=== PATIENT | female | born 1985 | race Caucasian/White ===

== ENCOUNTER 2020-05-11 18:59 | Emergency (ER) | payer BC ==
[2020-05-11 19:17] VITALS: TEMP 99
[2020-05-11] MEDS ORDERED: ONDANSETRON 4 MG/2 ML VIAL IVP STA (19:26)
[2020-05-11] MEDS ORDERED: SODIUM CHLORIDE 0.9% 2,000 ML IV STA (19:26)
[2020-05-11] MEDS ORDERED: FAMOTIDINE 20 MG/2 ML VIAL IV STA (19:26)
--- NOTE | 2020-05-11 19:28 | ED ---
General Adult HPI - General Chief complaint: Nausea/Vomiting/Diarrhea Stated complaint: Nausea/vomitting Time Seen by Provider: 05/11/20 19:18 Source: patient, RN notes reviewed Mode of arrival: ambulatory Limitations: no limitations - History of Present Illness Initial comments: Patient is a pleasant 35-year-old female presenting to the emergency Department with complaints of nausea vomiting. Onset of symptoms was around 40 hours ago. Patient has had very limited oral intake since that time. Patient has vomited intermittently several times. He should and still feels nauseated. No abdominal pain. Patient does have headache. Headache is similar to previous migraines. Gradual onset. No weakness or confusion. Patient denies any possible - Related Data Home Medications Medication Instructions Recorded Confirmed Aspirin/Acetaminophen/Caffeine 1 tab PO DAILY PRN 05/11/20 05/11/20 [Excedrin Migraine Caplet] Allergies Allergy/AdvReac Type Severity Reaction Status Date / Time Cephalosporins Allergy Unknown Verified 05/11/20 19:17 Childhood Review of Systems ROS Statement: Those systems with pertinent positive or pertinent negative responses have been documented in the HPI. ROS Other: All systems not noted in ROS Statement are negative. Constitutional: Denies: fever, chills Eyes: Denies: eye pain ENT: Denies: ear pain Respiratory: Denies: cough, dyspnea Cardiovascular: Denies: chest pain Endocrine: Denies: fatigue Gastrointestinal: Reports: nausea, vomiting. Denies: abdominal pain, diarrhea, constipation Genitourinary: Denies: dysuria Musculoskeletal: Denies: back pain Skin: Denies: rash, lesions Neurological: Reports: as per HPI, headache. Denies: weakness Past Medical History Additional Past Medical History / Comment(s): migraines History of Any Multi-Drug Resistant Organisms: None Reported Past Surgical History: No Surgical Hx Reported Past Psychological History: Anxiety Smoking Status: Never smoker Past Alcohol Use History: Occasional Past Drug Use History: Marijuana General Exam Limitations: no limitations General appearance: alert Head exam: Present: atraumatic, normocephalic Eye exam: Present: normal appearance, PERRL, EOMI ENT exam: Present: normal oropharynx Neck exam: Present: normal inspection. Absent: tenderness, meningismus Respiratory exam: Present: normal lung sounds bilaterally Cardiovascular Exam: Present: regular rate, normal rhythm GI/Abdominal exam: Present: soft, normal bowel sounds. Absent: distended, tenderness, guarding, rebound, rigid, pulsatile mass Extremities exam: Present: normal inspection Neurological exam: Present: alert, oriented X3, CN II-XII intact. Absent: motor sensory deficit Psychiatric exam: Present: normal affect, normal mood Skin exam: Present: normal color Course Vital Signs 05/11/20 19:14 Temperature 99.0 F Pulse Rate 90 Respiratory 20 Rate Blood Pressure 139/80 O2 Sat by Pulse 98 Oximetry Medical Decision Making - Medical Decision Making Patient reevaluated and resting comfortably in bed. Patient states she is feeling somewhat better however still has headache. Patient states her headache is similar to her recurrent headaches. Patient states she is having these approximately 4 or so times a year over the past 4 years. Patient states she also had them frequently in her 20s. Headache is similar to that. Patient believes headaches are related to stress. Patient states she has headache in her bilateral frontal/temporal region. Patient again states headache was not sudden and does not differ from her normal headaches. Patient is receptive to receiving a dose of morphine prior to discharge. Patient is agreeable not to drive and will have a friend pick her up. Patient does request discharge other than that. Patient is also receptive to taking a dose of Zofran home with her if needed for nausea later. Patient was offered computed tomography scan of her brain however refuses this. Patient was made aware that she is thought to have low suspicion for any acute abnormality. Patient is advised to have close follow-up primary care physician and is also receptive to this. - Lab Data Result diagrams: 05/11/20 19:31 05/11/20 19:31 Lab Results 05/11/20 05/11/20 05/11/20 Range/Units 19:31 19:31 19:49 WBC 12.3 H (3.8-10.6) k/uL RBC 4.82 (3.80-5.40) m/uL Hgb 14.1 (11.4-16.0) gm/dL Hct 42.4 (34.0-46.0) % MCV 88.0 (80.0-100.0) fL MCH 29.3 (25.0-35.0) pg MCHC 33.3 (31.0-37.0) g/dL RDW 13.2 (11.5-15.5) % Plt Count 352 (150-450) k/uL Neutrophils % 79 % Lymphocytes % 14 % Monocytes % 5 % Eosinophils % 1 % Basophils % 1 % Neutrophils # 9.7 H (1.3-7.7) k/uL Lymphocytes # 1.8 (1.0-4.8) k/uL Monocytes # 0.6 (0-1.0) k/uL Eosinophils # 0.1 (0-0.7) k/uL Basophils # 0.1 (0-0.2) k/uL Sodium 137 (137-145) mmol/L Potassium 4.1 (3.5-5.1) mmol/L Chloride 105 (98-107) mmol/L Carbon Dioxide 23 (22-30) mmol/L Anion Gap 9 mmol/L BUN 10 (7-17) mg/dL Creatinine 0.63 (0.52-1.04) mg/dL Est GFR (CKD-EPI)AfAm >90 (>60 ml/min/1.73 sqM) Est GFR (CKD-EPI)NonAf >90 (>60 ml/min/1.73 sqM) Glucose 98 (74-99) mg/dL Calcium 9.3 (8.4-10.2) mg/dL Total Bilirubin 0.7 (0.2-1.3) mg/dL AST 18 (14-36) U/L ALT 7 (4-34) U/L Alkaline Phosphatase 82 (38-126) U/L Total Protein 7.4 (6.3-8.2) g/dL Albumin 4.4 (3.5-5.0) g/dL Amylase 108 (30-110) U/L Lipase 78 (23-300) U/L Urine Color Yellow Urine Appearance Turbid H (Clear) Urine pH 6.0 (5.0-8.0) Ur Specific [place] 1.024 (1.001-1.035) Urine Protein Trace H (Negative) Urine Glucose (UA) Negative (Negative) Urine Ketones 3+ H (Negative) Urine Blood Negative (Negative) Urine Nitrite Negative (Negative) Urine Bilirubin Negative (Negative) Urine Urobilinogen <2.0 (<2.0) mg/dL Ur Leukocyte Esterase Large H (Negative) Urine RBC 10 H (0-5) /hpf Urine WBC 22 H (0-5) /hpf Ur Squamous Epith Cells 35 H (0-4) /hpf Urine Bacteria Moderate H (None) /hpf Urine Mucus Moderate H (None) /hpf Disposition Clinical Impression: Vomiting, Cephalgia Disposition: HOME SELF-CARE Condition: Stable Instructions (If sedation given, give patient instructions): Acute Nausea and Vomiting (ED), Acute Headache (ED) Additional Instructions: Please follow-up with primary care physician in the next day or 2 for recheck. Return for fevers, increased headache, weakness, vomiting, abdominal pain, worsening or changing symptoms or any other concerns. Is patient prescribed a controlled substance at d/c from ED?: No Referrals: Liz Beltran MD [STAFF PHYSICIAN] - 1-2 days More Miranda III, MD [STAFF PHYSICIAN] - 1-2 days Time of Disposition: 21:05
[2020-05-11 19:57] LABS: Basophils # (A) 0.1 k/uL (0-0.2); Basophils % (A) 1 %; Eosinophils # (A) 0.1 k/uL (0-0.7); Eosinophils % (A) 1 %; HCT 42.4 % (34.0-46.0); HGB 14.1 gm/dL (11.4-16.0); Lymphocytes # (A) 1.8 k/uL (1.0-4.8); Lymphocytes % (A) 14 %; MCH 29.3 pg (25.0-35.0); MCHC 33.3 g/dL (31.0-37.0); Mean Platelet Volume 6.8; Monocytes # (A) 0.6 k/uL (0-1.0); Monocytes % (A) 5 %; Neutrophils # (A) 9.7 k/uL (1.3-7.7); Neutrophils % (A) 79 %; Platelet Count 352 k/uL (150-450); RBC 4.82 m/uL (3.80-5.40); RDW 13.2 % (11.5-15.5); WBC 12.3 k/uL (3.8-10.6)
[2020-05-11 19:59] LABS: ALT 7 U/L (4-34); AST 18 U/L (14-36); African American GFR (CKD) >90 (>60 ml/min/1.73 sqM); Albumin 4.4 g/dL (3.5-5.0); Alkaline Phosphatase 82 U/L (38-126); Amylase 108 U/L (30-110); Anion Gap 9 mmol/L; Blood Urea Nitrogen 10 mg/dL (7-17); Calcium 9.3 mg/dL (8.4-10.2); Carbon Dioxide 23 mmol/L (22-30); Chloride 105 mmol/L (98-107); Glucose 98 mg/dL (74-99); Non-African American GFR(CKD) >90 (>60 ml/min/1.73 sqM); Potassium 4.1 mmol/L (3.5-5.1); Sodium 137 mmol/L (137-145); Total Bilirubin 0.7 mg/dL (0.2-1.3); Total Protein 7.4 g/dL (6.3-8.2)
[2020-05-11 20:06] LABS: Appearance,Urine Turbid (Clear); Bacteria,Urine Moderate /hpf; Bilirubin,Urine Negative (Negative); Blood,Urine Negative (Negative); Color,Urine Yellow; Glucose,Urine (UA) Negative (Negative); Ketones,Urine 3+ (Negative); Leukocyte Esterase,Urine Large (Negative); Mucus,Urine Moderate /hpf; Nitrite,Urine Negative (Negative); Protein,Urine Trace (Negative); RBC,Urine 10 /hpf (0-5); Specific Gravity,Urine 1.024 (1.001-1.035); Squamous Epithelial Cell,Urine 35 /hpf (0-4); Urobilinogen,Urine <2.0 mg/dL (<2.0); WBC,Urine 22 /hpf (0-5)
[2020-05-11] MEDS ORDERED: ACETAMINOPHEN TAB 500 MG TAB PO STA (20:20)
[2020-05-11] MEDS ORDERED: METOCLOPRAMIDE 5 MG/ML 2 ML VIAL IVP STA (20:20)
[2020-05-11] MEDS ORDERED: ONDANSETRON ODT 4 MG TAB PO STA (21:00)
[2020-05-11] MEDS: MORPHINE SULFATE 2 MG/ML SYRINGE IVP STA ×2 (21:17→21:28)
[2020-05-11 21:22] VITALS: BP 113/75; PULSE 85; RESP 18
== END 2020-05-11 21:42 | disposition home or self-care (01) ==
LOC: EC 18:59
DX: R11.10 Vomiting, unspecified (principal); R51 Headache; Z88.1 Allergy status to other antibiotic agents
CPT/HCPCS: 36415; 80053; 82150; 83690; 85025; 81001; 99284; 96374; 96375 ×3; 96361 ×2; J2765; J2405; J2270